=== PATIENT | female | born 1955 | race Two or more races ===

== ENCOUNTER 2017-12-29 11:11 | Outpatient (CLI) ==
[2013-11-06 16:36] VITALS: BMI 17.2
--- NOTE | 2017-12-29 13:32 | DI ---
EXAM: Two views of the chest. History: Short of breath Findings: Heart size is normal. No focal consolidation. No appreciable pleural fluid and no pneumo thorax. Atherosclerotic vascular calcifications. No acute osseous abnormalities. Impression: No acute cardiopulmonary process.
== END 2017-12-29 11:12 | disposition home or self-care (01) ==
LOC: RAD 11:11
PROVIDERS: ATTEND Physician Assistant
DX: R06.02 Shortness of breath (principal)

== ENCOUNTER 2018-01-06 12:42 | Outpatient (CLI) ==
[2013-11-06 16:36] VITALS: BMI 17.2
== END 2018-01-06 12:43 | disposition home or self-care (01) ==
LOC: CAR 12:42
PROVIDERS: ATTEND Physician Assistant
DX: R06.02 Shortness of breath (principal)

== ENCOUNTER 2018-03-23 13:07 | Outpatient (CLI) ==
[2013-11-06 16:36] VITALS: BMI 17.2
--- NOTE | 2018-03-23 13:47 | DI ---
EXAM: Three views of the left shoulder. History: Left shoulder pain. Findings: No acute fracture or dislocation. Osteopenia. Sclerosis and cystic change involving supe rior lateral aspect of the humeral head. Mild narrowing of the left AC joint and left glenohumeral j oint. Atherosclerotic vascular calcifications. Impression: 1. No acute osseous abnormality. 2. Mild arthritis. 3. Probable rotator cuff disease.
--- NOTE | 2018-03-23 13:50 | DI ---
EXAM: Three views of the right shoulder. History: Right shoulder pain. Findings: No acute fracture or dislocation. Mild narrowing of the right AC joint and right glenohume ral joint. Osteopenia. Sclerosis and cystic change within the superior lateral aspect of the eladia l head. Atherosclerotic vascular calcifications. Impression: 1. No acute osseous abnormality. 2. Mild arthritis. 3. Possible rotator cuff disease. 4. Atherosclerotic vascular disease
== END 2018-03-23 13:08 | disposition home or self-care (01) ==
LOC: RAD 13:07
PROVIDERS: ATTEND Physician Assistant
DX: M25.511 Pain in right shoulder (principal); M25.512 Pain in left shoulder